=== PATIENT | male | born 1955 | race Caucasian/White ===

== ENCOUNTER 2019-12-23 18:26 | Outpatient (CLI) | payer OTHER | END 2019-12-23 18:40 | disposition home or self-care (01) | LOC: LAB 18:26 | DX: R97.20 Elevated prostate specific antigen [PSA] (principal) ==

== ENCOUNTER 2019-12-31 07:11 | Outpatient (CLI) | payer OTHER | END 2019-12-31 08:10 | disposition home or self-care (01) | LOC: SONOGRAMA 07:11 | DX: D29.1 Benign neoplasm of prostate (principal); R97.20 Elevated prostate specific antigen [PSA] ==

== ENCOUNTER 2022-10-18 07:29 | Outpatient (CLI) | payer OTHER | END 2022-10-18 07:34 | disposition home or self-care (01) | LOC: SONOGRAMA 07:29 | PROVIDERS: ATTEND Urology | DX: N41.1 Chronic prostatitis (principal); D29.1 Benign neoplasm of prostate; R97.20 Elevated prostate specific antigen [PSA] ==